=== PATIENT | female | born 1965 | race Caucasian/White ===

== ENCOUNTER → 2019-09-18 17:17 | Outpatient (CLI) | payer OTHER, SELFPAY ==
--- NOTE | ~2019-09-18 | MM_ITS ---
EXAMINATION: MM screening [facility] BI w [facility] HISTORY: Screening mammogram TECHNIQUE: Craniocaudal and mediolateral oblique 3-D tomosynthesis images were obtained and synthetic 2-D images were generated. CAD analysis was submitted and interpreted. COMPARISON: 06/30/2017, 06/14/2014, 02/15/2013 BREAST PARENCHYMAL COMPOSITION: The breasts are heterogeneously dense, which may obscure small masses . FINDINGS: Scattered benign-appearing calcifications are present. There is no evidence of suspicious m ass, calcification, or architectural distortion to suggest malignancy in either breast. There has bee n no suspicious interval change. IMPRESSION: 1. No mammographic evidence of malignancy. 2. Recommend routine screening mammography in one year. BI-RADS Category 2: Benign finding(s). Reviewed, dictated and finalized at location A. TECH
== END ==
PROVIDERS: PCP Family Medicine; Visit Provider Family Medicine
DX: Z12.31 Encounter for screening mammogram for malignant neoplasm of breast (principal)
CPT/HCPCS: 77063; 77067

== ENCOUNTER 2020-04-03 08:36 | Outpatient (CLI) | payer OTHER, SELFPAY ==
--- NOTE | ~2020-04-03 | MMUS_ITS ---
EXAMINATION: MM diagnostic [facility] BI w [facility], US breast RT limited HISTORY: Palpable right breast abnormality TECHNIQUE: Additional 3-D tomosynthesis images of the breasts were performed and synthetic 2-D images were generated. CAD analysis was submitted and interpreted. High resolution right breast ultrasound was performed. COMPARISON: Comparison to multiple prior studies sequentially, with oldest reviewed study dated 11/18. BREAST PARENCHYMAL COMPOSITION: The breasts are heterogenously dense, which may obscure small masses. FINDINGS: MAMMOGRAPHIC FINDINGS: There are no new masses, calcifications or architectural distortion in the breast to suggest malignan cy. Specifically, no abnormality in the area of palpable concern in the lower inner quadrant of the r ight breast. ULTRASOUND: Right breast ultrasound: In the area of palpable concern at 4:00, 9 cm from the nipple, there is a benign-appearing oval hyper echoic mass with parallel orientations and internal striations, compatible with 1.2 cm lipoma located superficially. No suspicious masses to suggest malignancy. IMPRESSION: 1. No evidence for malignancy in either breast. Benign findings. 2. Routine yearly screening mammogram and regular clinical breast examination are recommended. BI-RADS Category 2: Benign finding(s). Reviewed, dictated and finalized at location A. IMPRESSION: 1. No evidence for malignancy in either breast. Benign findings. 2. Routine yearly screening mammogram and regular clinical breast examination a re recommended. BI-RADS Category 2: Benign finding(s).
== END 2020-04-03 08:37 ==
PROVIDERS: PCP Family Medicine; Visit Provider Nurse Practitioner Family
DX: R92.8 Other abnormal and inconclusive findings on diagnostic imaging of breast (principal)
CPT/HCPCS: 76642; 77062; 77066; G0279

== ENCOUNTER 2020-06-03 01:17 | Outpatient (CLI) | payer OTHER, SELFPAY ==
[2020-06-03 22:35] LABS: SARS-CoV-2 RNA PCR Negative
== END 2020-06-03 01:18 | disposition home or self-care (01) ==
LOC: ANHCOVIDDT 01:19
PROVIDERS: PCP Family Medicine; Visit Provider Internal Medicine Gastroenterology
DX: Z01.812 Encounter for preprocedural laboratory examination (principal); Z20.828 Contact with and (suspected) exposure to other viral communicable diseases
CPT/HCPCS: 87635; C9803; U0003

== ENCOUNTER 2020-06-05 02:30 | Day surgery (SDC) | payer OTHER, SELFPAY ==
[2020-05-29 14:25] VITALS: BMI 30.2
[2020-06-05 13:06] VITALS: BP 132/53; PULSE 99; RESP 16; TEMP 36.5; O2SAT 99; BMI 29.5
--- NOTE | 2020-06-05 13:10 | WPDANESEPPF ---
Anes - Initial Pre Proc Eval Procedure: Operation Date: 06/05/20 14:00 Proposed Procedures p Screening Colonoscopy - Sedrick Hernandez MD Date/Time: 06/05/20 13:10 Surgeon: Sedrick Hernandez MD Pre Op Diagnosis: Neoplasm Screening Patient Data Age: 54 Gender: F Height: 5 ft 2 in Weight: 73.4 kg Last Vital Signs Temp 36.5 C 06/05/20 13:06 Pulse 99 06/05/20 13:06 Resp 16 06/05/20 13:06 BP 132/53 L 06/05/20 13:06 Pulse Ox 99 06/05/20 13:06 Allergies Allergy/AdvReac Type Severity Reaction Status Date / Time No Known Allergies Allergy Verified 06/05/20 13:04 Home Medications Medication Instructions Recorded Confirmed Type levalbuterol HCl 0.63 mg/3 mL 0.63 mg INHALATION Q6H PRN 06/05/19 05/29/20 History solution for nebulization cyclobenzaprine 10 mg tablet 10 mg PO BID #60 tablet 08/02/19 05/29/20 Rx mometasone-formoterol HFA 200 2 puff INHALATION Q12H #13 gm 10/27/19 05/29/20 Rx mcg-5 mcg/actuation aerosol inhaler pantoprazole 40 mg tablet,delayed 40 mg PO QAM #30 tablet 11/21/19 05/29/20 Rx release montelukast 10 mg tablet 10 mg PO DAILY #30 tablet 11/22/19 05/29/20 Rx phentermine 37.5 mg capsule 37.5 mg PO DAILY #20 cap 02/11/20 05/29/20 Rx cetirizine 10 mg tablet 10 mg PO DAILY #30 tablet 02/15/20 05/29/20 Rx triamcinolone acetonide 0.5 % 1 applic TOPICAL BID #30 gm 02/26/20 05/29/20 Rx topical cream meloxicam 15 mg tablet 15 mg PO DAILY #30 tablet 04/17/20 05/29/20 Rx albuterol sulfate 90 mcg/actuation 4 puff INHALATION Q4H PRN #8 gm 05/15/20 05/29/20 Rx aerosol inhaler peg 3350 240 gram-electrolytes 240 ml PO Q10M #4000 ml 05/15/20 Rx 22.72 gram-6.72 g-5.84 g powdr for soln sodium,potassium,mag sulfates 17.5 480 ml PO .COMPLEX #480 ml 05/29/20 Rx gram-3.13 gram-1.6 gram oral soln Patient hx anesthesia problems: none Family hx anesthesia problems: none [facility] Surgical History Surgical History (Updated 06/05/20 @ 13:14 by Jamari Beckett MD) History of bronchoscopy History of section History of D&C Family History Family History Father Cerebrovascular accident Family history of diabetes mellitus in first degree relative Grandparent Malignant neoplasm of prostate Mother Family history of diabetes mellitus in first degree relative Family history of malignant neoplasm of uterus Family history of coronary artery disease Other Hypertension Social History Social History Smoking status: Former smoker Second hand tobacco smoke exposure: Yes Alcohol intake: current Living arrangements: with family Spiritual care concerns: No Anes - Eval Final PreProcedure Day of Procedure 06/05/20 13:10 Patient weight: obese Heart: regular rate and rhythm Lungs: clear to auscultation Airway: Mallampati scale class II Neurological: alert and oriented Last oral intake: >/= 8 hours ASA classification: III Emergent: no Anesthetic plan: proceed Anesthesia type and monitoring: general GIVS and standard monitoring Informed Consent: The patient's anesthetic plan and its attendant risks and benefits were discussed with the patient/family/POA. Questions were solicited and answers provided to the satisfaction of the patient/family/POA.
[2020-06-05] MEDS: LACTATED RINGERS 1,000 ML 150 ML IV CONT (13:26)
--- NOTE | 2020-06-05 13:28 | PM.HPGS ---
History of Present Illness History of Present Illness Consent: Risks, benefits, and alternatives have been discussed and questions answered. Patient agrees to proceed with procedure. Chief complaint: Neoplasm Screening Narrative: Melissa Stuart is a 54 year old female here for first screening colonoscopy Review of Systems Constitutional: Constitutional: Denies headache(s) and Denies weakness Eyes: Eyes: Denies blurry vision ENT: Reports Normal hearing present, Denies headache(s) and Denies neck pain Cardiovascular: Cardiovascular: Denies chest pain and Denies dyspnea Respiratory: Respiratory: Denies dyspnea Gastrointestinal: Gastrointestinal: Reports no additional gastrointestinal complaints Genitourinary: Genitourinary: Denies dysuria Musculoskeletal: Musculoskeletal: Denies neck pain Integumentary/Breasts: Skin/Breast: Denies dry skin Neurologic: Reports Normal hearing present, Denies headache(s) and Denies weakness Psychiatric: Psychiatric: Denies anxiety Endocrine: Endocrine: Denies change in body appearance Hematologic/Lymphatic: Hematologic/Lymphatic: Denies easy bleeding Allergic/Immunologic: Allergic/Immunologic: Denies urticaria [facility] Past Medical History Medical History (Updated 06/05/20 @ 13:28 by Sedrick Hernandez MD) Colon cancer screening Surgical History Surgical History (Updated 06/05/20 @ 13:14 by Jamari Beckett MD) History of bronchoscopy History of section History of D&C Family History Family History Father Cerebrovascular accident Family history of diabetes mellitus in first degree relative Grandparent Malignant neoplasm of prostate Mother Family history of diabetes mellitus in first degree relative Family history of malignant neoplasm of uterus Family history of coronary artery disease Other Hypertension Social History Social History Smoking status: Former smoker Second hand tobacco smoke exposure: Yes Alcohol intake: current Living arrangements: with family Spiritual care concerns: No Meds Home Medications and Allergies Home Medications Medication Instructions Recorded Confirmed Type levalbuterol HCl 0.63 mg/3 mL 0.63 mg INHALATION Q6H PRN 06/05/19 05/29/20 History solution for nebulization cyclobenzaprine 10 mg tablet 10 mg PO BID #60 tablet 08/02/19 05/29/20 Rx mometasone-formoterol HFA 200 2 puff INHALATION Q12H #13 gm 10/27/19 05/29/20 Rx mcg-5 mcg/actuation aerosol inhaler pantoprazole 40 mg tablet,delayed 40 mg PO QAM #30 tablet 11/21/19 05/29/20 Rx release montelukast 10 mg tablet 10 mg PO DAILY #30 tablet 11/22/19 05/29/20 Rx phentermine 37.5 mg capsule 37.5 mg PO DAILY #20 cap 02/11/20 05/29/20 Rx cetirizine 10 mg tablet 10 mg PO DAILY #30 tablet 02/15/20 05/29/20 Rx triamcinolone acetonide 0.5 % 1 applic TOPICAL BID #30 gm 02/26/20 05/29/20 Rx topical cream meloxicam 15 mg tablet 15 mg PO DAILY #30 tablet 04/17/20 05/29/20 Rx albuterol sulfate 90 mcg/actuation 4 puff INHALATION Q4H PRN #8 gm 05/15/20 05/29/20 Rx aerosol inhaler peg 3350 240 gram-electrolytes 240 ml PO Q10M #4000 ml 05/15/20 Rx 22.72 gram-6.72 g-5.84 g powdr for soln sodium,potassium,mag sulfates 17.5 480 ml PO .COMPLEX #480 ml 05/29/20 Rx gram-3.13 gram-1.6 gram oral soln Allergies Allergy/AdvReac Type Severity Reaction Status Date / Time No Known Allergies Allergy Verified 06/05/20 13:04 Vital Signs Vital Signs - 24 hr 06/05/20 13:06 Temperature 97.7 F Pulse Rate 99 Respiratory Rate 16 Blood Pressure 132/53 L Pulse Oximetry 99 Exam Const: General: comfortable and no acute distress HENMT: General nose exam: Normal nares present Eyes: General: appearance normal, both eyes and all related structures Neck: Neck: no JVD Resp: Auscultation: clear to auscultation bilaterally C
[2020-06-05 13:52] VITALS: BP 107/53; PULSE 87; RESP 16; O2SAT 99
[2020-06-05 14:02] VITALS: BP 119/52; PULSE 84; RESP 16; O2SAT 99
[2020-06-05 14:12] VITALS: BP 127/64; PULSE 82; RESP 16; O2SAT 99
== END 2020-06-05 14:40 | disposition home or self-care (01) ==
PROVIDERS: PCP Family Medicine; Visit Provider Internal Medicine Gastroenterology
PROC: 0DJD8ZZ Inspection of Lower Intestinal Tract, Via Natural or Artificial Opening Endoscopic (ICD-10-PCS; CPT 45378; principal; 2020-06-05 14:00)
DX: Z12.11 Encounter for screening for malignant neoplasm of colon (principal); K57.30 Diverticulosis of large intestine without perforation or abscess without bleeding
CPT/HCPCS: 45378; J2704; J7120

== ENCOUNTER 2021-11-25 14:46 | Outpatient (CLI) | payer OTHER, SELFPAY ==
[2021-11-25 15:18] LABS: Rheumatoid Factor < 8.6 IU/ML (<12)
[2021-11-25 15:47] LABS: Erythrocyte Sedimentation Rate 1 mm/hr (0-20)
== END 2021-11-25 14:47 | disposition home or self-care (01) ==
LOC: ANHLAB 14:48
PROVIDERS: PCP Family Medicine; Visit Provider Nurse Practitioner Family
DX: M19.90 Unspecified osteoarthritis, unspecified site (principal)
CPT/HCPCS: 36415; 85652; 86038; 86430

== ENCOUNTER 2021-12-21 17:57 | Outpatient (CLI) | payer OTHER, SELFPAY ==
--- NOTE | ~2021-12-21 | XR_ITS ---
EXAM: XR lumbar spine 6V w bending DATE: 12/21/2021 18:30 HISTORY: M54.42 - Lumbago with sciatica, left side . COMPARISON: None available. FINDINGS: 5 nonrib-bearing lumbar-type vertebral bodies. Pedicles intact. Normal vertebral body alig nment. Very little range of motion in flexion. Vertebral body heights preserved. Severe height loss a t L5-S1. Multilevel mild marginal osteophytosis. Mild lower lumbar facet arthropathy. No definite par s defect. No fracture or dislocation. IMPRESSION: No dynamic listhesis in extension. Limited evaluation for listhesis in flexion due to clifford ited range of motion. Severe degenerative disc disease at L5-S1. Reviewed, dictated and finalized at location K. IMPRESSION: No dynamic listhesis in extension. Limited evaluation for listhesis in flexion due to limited range of motion. Severe degenerative disc disease at L5-S1.
--- NOTE | ~2021-12-21 | XR_ITS ---
EXAM: XR elbow RT min 3V DATE: 12/21/2021 18:30 HISTORY: M25.529 - Pain in unspecified elbow . COMPARISON: None available. FINDINGS: Normal mineralization. No fracture or dislocation. No lytic or blastic lesion. Joint space s are maintained. No erosion or periosteal change. Soft tissues within normal limits. IMPRESSION: Normal right elbow radiograph findings. Reviewed, dictated and finalized at location K.
== END 2021-12-21 17:58 | disposition home or self-care (01) ==
PROVIDERS: PCP Family Medicine; Visit Provider Nurse Practitioner Family
DX: M25.529 Pain in unspecified elbow (principal); M54.41 Lumbago with sciatica, right side; M54.42 Lumbago with sciatica, left side
CPT/HCPCS: 72114; 73080

== ENCOUNTER 2021-12-23 15:18 | Outpatient (CLI) | payer OTHER, SELFPAY ==
[2021-12-23 16:12] LABS: Hematocrit 40.7 % (37.0-47.0); Hemoglobin 12.9 g/dL (12.0-15.0); Mean Corpuscular HGB Conc 31.7 g/dl (32-36); Mean Corpuscular Hemoglobin 28.2 pg (26-34); Mean Corpuscular Volume 88.9 fl (80-100); Mean Platelet Volume 9.9 fl (7.4-10.4); Platelet Count Result 268 k/mm3 (150-375); Red Blood Count 4.58 M/mm3 (4.2-5.4); Red Cell Distribution Width 13.3 % (11.5-14.5); White Blood Count 8.1 K/mm3 (4.5-10.0)
[2021-12-23 16:31] LABS: Erythrocyte Sedimentation Rate 15 mm/hr (0-20)
[2021-12-23 17:01] LABS: Alanine Aminotransferase 20 U/L (6-35); Albumin Level 4.6 g/dL (3.5-5.1); Alkaline Phosphatase 104 U/L (38-126); Anion Gap 7 mmol/L (8-16); Aspartate Amino Transferase 25 U/L (14-36); Bilirubin,Total 0.7 mg/dL (0.2-1.3); Blood Urea Nitrogen 23 mg/dL (7-17); Calcium 9.1 mg/dL (8.4-10.2); Carbon Dioxide 25 mmol/L (22-30); Chloride 108 mmol/L (98-107); Cholesterol 247 mg/dL (0-200); Estimated Glomerular Filt Rate > 60; Glucose 90 mg/dL (65-110); HDL Direct 42 mg/dL; Potassium 4.5 mmol/L (3.4-5.0); Sodium 140 mmol/L (137-145); Triglycerides 212 mg/dL (<150)
[2021-12-23 17:07] LABS: CRP 1.3 mg/dL (<1.0)
[2021-12-23 17:12] LABS: LDL Cholesterol Direct 152 mg/dL
[2021-12-23 17:35] LABS: Iron 75 ug/dL (37-170)
[2021-12-23 17:44] LABS: Percent Iron Saturation 24 % (20-50)
[2021-12-27 21:44] LABS: Tissue Transglutaminase IgG Ab <1.0 U/mL (<15.0)
[2021-12-28 10:50] LABS: Tissue Transglutaminase IgA Ab <1.0 U/mL (<15.0)
== END 2021-12-23 15:19 | disposition home or self-care (01) ==
PROVIDERS: PCP Family Medicine; Referring Provider Internal Medicine Gastroenterology; Visit Provider Nurse Practitioner Family
DX: K57.92 Diverticulitis of intestine, part unspecified, without perforation or abscess without bleeding (principal); K52.9 Noninfective gastroenteritis and colitis, unspecified; D64.9 Anemia, unspecified; Z13.29 Encounter for screening for other suspected endocrine disorder; E78.2 Mixed hyperlipidemia
CPT/HCPCS: 36415; 80053; 80061; 83516; 83540; 83550; 84443; 85027; 85652; 86140

== ENCOUNTER 2022-02-07 12:51 | Outpatient (CLI) | payer OTHER, SELFPAY ==
--- NOTE | ~2022-02-07 | MR_ITS ---
EXAMINATION: MR lumbar spine wo con DATE: 02/07/2022 13:23 INDICATION: Severe degenerative disc disease with back and leg pain TECHNIQUE: Magnetic resonance imaging (MRI) of the lumbar spine was performed without intravenous con trast. Sequences included sagittal T2-weighted FSE, sagittal T2-weighted FS FSE, sagittal T1-weighted FSE, and axial T2-weighted FSE. COMPARISON: Lumbar spine radiographs dated 12/17/2021 FINDINGS: Alignment is normal. Vertebral body heights are normal. Normal marrow signal. Moderate to severe dis c height loss with annular fissure at at L5-S1. Mild disc desiccation with annular fissure at L4-L5. Minimal disc height loss at L2-L3 and L3-L4 and with annular fissure at L1-L2. The conus medullaris t erminates at L2. There is normal signal in the caudal spinal cord. Paravertebral soft tissues are unr emarkable. The following disc levels are specifically discussed: T12-L1: The disc does not extend beyond the endplate margin. There is moderate bilateral facet joint osteoarthritis. There is no neural foraminal stenosis. There is no central canal stenosis. L1-L2: Disc is mildly bulging with superimposed annular fissure and right paracentral disc protrusion . There is mild to moderate bilateral facet joint osteoarthritis. There is mild right neural foramina l stenosis. There is mild central canal stenosis. L2-L3: Disc is mildly bulging. There is mild right and mild to moderate left facet joint osteoarthrit is. There is mild right and mild to moderate left neural foraminal stenosis. There is minimal central canal stenosis. L3-L4: Bilateral small foraminal disc protrusions. There is mild right and moderate left facet joint osteoarthritis. There is mild bilateral neural foraminal stenosis. There is no central canal stenosis . L4-L5: Disc is mildly bulging with superimposed left foraminal zone annular fissure and small disc pr otrusion. There is mild hypertrophy of the ligamentum flavum. There is mild bilateral facet joint ost eoarthritis. There is mild to moderate bilateral neural foraminal stenosis. There is mild central can al stenosis including narrowing of the left and right lateral recesses.. L5-S1: Disc extrusion extending from foraminal zone to foraminal zone with disc material extending up to 4 mm caudal to the level of the superior endplate of S1. There is mild to moderate bilateral face t joint osteoarthritis. There is moderate to stenosis at the entrance and moderate to severe stenosis at the exit of the bilateral neural foramina due in part to prominent L5 posterolateral inferior end plate osteophytes. Mild to moderate stenosis at the left and right lateral recesses with no central c anal stenosis. IMPRESSION: 1. Moderate to severe spondylosis at the lumbosacral junction with mild spondylosis in the more cepha lad lumbar spine. Reviewed, dictated and finalized at location B. IMPRESSION: 1. Moderate to severe spondylosis at the lumbosacral junction with mild spondyl osis in the more cephalad lumbar spine.
== END 2022-02-07 12:52 | disposition home or self-care (01) ==
PROVIDERS: PCP Family Medicine; Visit Provider Nurse Practitioner Family
DX: M51.36 Other intervertebral disc degeneration, lumbar region (principal); M47.896 Other spondylosis, lumbar region
CPT/HCPCS: 72148

== ENCOUNTER 2022-02-22 07:51 | Outpatient (CLI) | payer OTHER, SELFPAY ==
--- NOTE | 2022-03-16 14:52 | WPDHOMESLEEP ---
Sleep Study - Home Unattended Date of Study: 02/22/22 Ordering Provider: Wyatt Gallagher MD Interpreting Provider: Rebekah Barber MD Home Sleep Study Type: Apnea Link Air Height: 1.57 m Weight: 76.204 kg Body Mass Index: 30.7 Neck Circumference (inches): 15 [place]: 16 Reason for Sleep Study Hypersomnolence Sleep History Melissa Stuart is a 56 year old female with difficulty falling asleep and difficulty staying asleep.? She is extremely tired in the day.? She wakes up throughout the night.? There is a family history with her father having loud snoring and probable sleep apnea.? Her younger sister has sleep apnea and she thinks both of her parents did.? She frequently awakens from sleep feeling short of breath and frequently awakens at night with heartburn, belching or coughing.? She occasionally snores loudly enough that others complain about it.? She constantly has trouble sleeping with a cold.? She frequently wakes up gasping for breath at night and frequently has breathing problems at night observed by others.? She frequently feels as if she is choking at night.? She constantly sweats excessively night.? She frequently notices her heart pounding or beating irregularly at night.? She frequently falls asleep during the day, occasionally falls asleep involuntarily but never falls asleep while driving.? She occasionally has a month full tone with strong emotion.? She frequently has daytime difficulties due to excessive sleepiness.? She occasionally feels paralyzed on waking or falling asleep.? She frequently has vivid dreamlike scenes upon awakening or falling asleep.? She occasionally feels afraid to go to sleep.? She frequently has nightmares.? She frequently remembers her dreams.? She frequently has racing thoughts.? She constantly feels sad, depressed and anxious.? She constantly has muscular tension.? She frequently notices parts of her body jerking.? She constantly kicks at night. She occasionally has crawling and aching feelings in her legs, and constantly has leg pain at night.? She occasionally has morning jaw pain. ??She constantly grinds her teeth at night.? She frequently is bothered by pain during the day, is awakened by pain at night and wakes up feeling stiff in the morning with sore achy muscles and pain in the neck and spine.? She has fatigue, panic, sexual problems, memory problems, concentration difficulties, nightmares, headaches and bowel disturbances.? Normal bedtime is variable, and she estimates getting 3-4 hours of sleep at night.? Sometimes it takes hours to fall asleep.? She wakes up numerous times at night and may stay awake anywhere from 30 minutes to several hours.? She sleeps longer on the weekends.? She has always felt that she has needed naps, even as far back as childhood. ?She takes naps in the afternoon or evening.? A short nap is not at all refreshing.? She is drowsy in the morning for 3 hours or longer.? She feels better in the afternoon compared to other times of the day. Habits:? Quit tobacco 3 years ago.? Caffeine 2 sodas or teas daily.? No alcohol for the last 8 years.? No recreational drugs.? [facility] Past Medical History Medical History BMI 29.0-29.9,adult BMI 30.0-30.9,adult BMI greater than 30 Chronic diarrhea Colon cancer screening Diverticula of colon IBS (irritable bowel syndrome) Irritable bowel syndrome with diarrhea Lower abdominal pain Surgical History Surgical History History of bronchoscopy History of section History of D&C Family History Family History Father Cerebrovascular accident Family history of diabetes mellitus in first degree relative Grandparent Malignant neoplasm of prostate Mother Family history of diabetes mellitus in first degree relative Family history of malignant neoplasm of uterus Family his
[2022-03-16 15:02] VITALS: BMI 30.7
== END 2022-02-23 12:15 | disposition home or self-care (01) ==
PROVIDERS: PCP Family Medicine; Visit Provider Family Medicine
DX: G47.33 Obstructive sleep apnea (adult) (pediatric) (principal); G47.10 Hypersomnia, unspecified; G25.81 Restless legs syndrome
CPT/HCPCS: 95806

== ENCOUNTER 2022-03-07 00:20 | Day surgery (SDC) | payer OTHER, SELFPAY ==
[2022-03-07 11:35] VITALS: BP 140/69; PULSE 100; RESP 18; TEMP 36.4; O2SAT 99
[2022-03-07] MEDS: LACTATED RINGERS 1,000 ML 150 ML IV CONT (11:36)
--- NOTE | 2022-03-07 11:56 | PM.HPGS ---
History of Present Illness History of Present Illness Consent: Risks, benefits, and alternatives have been discussed and questions answered. Patient agrees to proceed with procedure. Chief complaint: GERD, diarrhea Narrative: Melissa Stuart is a 56 year old female with gerd on pantoprazole helping but still breakthrough, also diarrhea. She used imodium and recently questran with minimal relief. ?Had for screening 2019, no polyps, no colitis but had diverticulosis. Serology for celiac negative. Review of Systems Constitutional: Constitutional: Denies headache(s) and Denies weakness Eyes: Eyes: Denies blurry vision ENT: Reports Normal hearing present, Denies headache(s) and Denies neck pain Cardiovascular: Cardiovascular: Denies chest pain and Denies dyspnea Respiratory: Respiratory: Denies dyspnea Gastrointestinal: Gastrointestinal: Reports no additional gastrointestinal complaints Genitourinary: Genitourinary: Denies dysuria Musculoskeletal: Musculoskeletal: Denies neck pain Integumentary/Breasts: Skin/Breast: Denies dry skin Neurologic: Reports Normal hearing present, Denies headache(s) and Denies weakness Psychiatric: Psychiatric: Denies anxiety Endocrine: Endocrine: Denies change in body appearance Hematologic/Lymphatic: Hematologic/Lymphatic: Denies easy bleeding Allergic/Immunologic: Allergic/Immunologic: Denies urticaria PMFSH Past Medical History Medical History BMI 29.0-29.9,adult BMI 30.0-30.9,adult BMI greater than 30 Chronic diarrhea Colon cancer screening Diverticula of colon IBS (irritable bowel syndrome) Irritable bowel syndrome with diarrhea Lower abdominal pain Surgical History Surgical History History of bronchoscopy History of section History of D&C Family History Family History Father Cerebrovascular accident Family history of diabetes mellitus in first degree relative Grandparent Malignant neoplasm of prostate Mother Family history of diabetes mellitus in first degree relative Family history of malignant neoplasm of uterus Family history of coronary artery disease Other Hypertension Social History Social History Smoking packs per day: 1 Smoking cigarettes per day: 20.0 Years smoked: 40 Smoking pack-years: 40.00 Smoking status: Former smoker Tobacco type: cigarettes Second hand tobacco smoke exposure: Yes Alcohol intake: former Living arrangements: with family Spiritual care concerns: No Meds Home Medications and Allergies Home Medications Medication Instructions Recorded Confirmed Type levalbuterol HCl 0.63 mg/3 mL 0.63 mg inhalation Q6H PRN asthma 06/05/19 02/22/22 History solution for nebulization mometasone-formoterol HFA 200 2 puff inhalation Q12H #13 grams 10/27/19 02/22/22 Rx mcg-5 mcg/actuation aerosol inhaler (Dulera) albuterol sulfate 90 mcg/actuation 4 puff inhalation Q4H PRN 06/12/20 02/22/22 Rx aerosol inhaler (Proventil HFA) shortness of breath or wheezing #18 grams cetirizine 10 mg tablet 10 mg PO DAILY #90 tabs 06/12/20 02/22/22 Rx pantoprazole 40 mg tablet,delayed 40 mg PO QAM #90 tabs 01/28/21 02/22/22 Rx release (Protonix) loperamide 2 mg tablet 2 mg PO Q6H PRN loose stool #20 11/10/21 02/22/22 Rx tabs cholestyramine (with sugar) 4 gram 4 g PO DAILY #348.6 grams 12/23/21 02/22/22 Rx oral powder ondansetron HCl 4 mg tablet 4 mg PO Q8H PRN nausea and 12/23/21 02/22/22 Rx vomiting #90 tabs duloxetine 30 mg capsule,delayed 30 mg PO DAILY #30 caps 02/05/22 02/22/22 Rx release tramadol 50 mg tablet 50 mg PO Q6H PRN pain #60 tabs 02/07/22 02/22/22 Rx hydrocodone 5 mg-acetaminophen 325 1 tablet PO DAILY PRN Pain 02/22/22 02/22/22 History mg tablet
--- NOTE | 2022-03-07 11:56 | WPDANESEPPF ---
Anes - Initial Pre Proc Eval Procedure: Operation Date: 03/07/22 12:45 Proposed Procedures p Flexible Sigmoidoscopy - Sedrick Hernandez MD s Esophagogastroduodenoscopy - Sedrick Hernandez MD Date/Time: 03/07/22 11:56 Surgeon: Sedrick Hernandez MD Pre Op Diagnosis: GERD, diarrhea Patient Data Age: 56 Gender: F Height: 1.57 m Weight: 74.5 kg Last Vital Signs Temp 97.5 F L 03/07/22 11:35 Pulse 100 03/07/22 11:35 Resp 18 03/07/22 11:35 BP 140/69 03/07/22 11:35 Pulse Ox 99 03/07/22 11:35 O2 Del Method Room Air 03/07/22 11:35 Allergies Allergy/AdvReac Type Severity Reaction Status Date / Time mushroom AdvReac Vomiting Verified 03/07/22 11:32 Home Medications Medication Instructions Recorded Confirmed Type levalbuterol HCl 0.63 mg/3 mL 0.63 mg inhalation Q6H PRN asthma 06/05/19 02/22/22 History solution for nebulization mometasone-formoterol HFA 200 2 puff inhalation Q12H #13 grams 10/27/19 02/22/22 Rx mcg-5 mcg/actuation aerosol inhaler (Dulera) albuterol sulfate 90 mcg/actuation 4 puff inhalation Q4H PRN 06/12/20 02/22/22 Rx aerosol inhaler (Proventil HFA) shortness of breath or wheezing #18 grams cetirizine 10 mg tablet 10 mg PO DAILY #90 tabs 06/12/20 02/22/22 Rx pantoprazole 40 mg tablet,delayed 40 mg PO QAM #90 tabs 01/28/21 02/22/22 Rx release (Protonix) loperamide 2 mg tablet 2 mg PO Q6H PRN loose stool #20 11/10/21 02/22/22 Rx tabs cholestyramine (with sugar) 4 gram 4 g PO DAILY #348.6 grams 12/23/21 02/22/22 Rx oral powder ondansetron HCl 4 mg tablet 4 mg PO Q8H PRN nausea and 12/23/21 02/22/22 Rx vomiting #90 tabs duloxetine 30 mg capsule,delayed 30 mg PO DAILY #30 caps 02/05/22 02/22/22 Rx release tramadol 50 mg tablet 50 mg PO Q6H PRN pain #60 tabs 02/07/22 02/22/22 Rx hydrocodone 5 mg-acetaminophen 325 1 tablet PO DAILY PRN Pain 02/22/22 02/22/22 History mg tablet montelukast 10 mg tablet 10 mg PO DAILY 02/22/22 02/22/22 History gabapentin 300 mg capsule 300 mg PO QHS #30 caps 02/25/22 03/07/22 Rx Patient hx anesthesia problems: none Family hx anesthesia problems: none Results Review: All pre-operative results and documents have been reviewed as part of the pre-operative evaluation. [facility] Past Medical History Medical History BMI 29.0-29.9,adult BMI 30.0-30.9,adult BMI greater than 30 Chronic diarrhea Colon cancer screening Diverticula of colon IBS (irritable bowel syndrome) Irritable bowel syndrome with diarrhea Lower abdominal pain Surgical History Surgical History History of bronchoscopy History of section History of D&C Family History Family History Father Cerebrovascular accident Family history of diabetes mellitus in first degree relative Grandparent Malignant neoplasm of prostate Mother Family history of diabetes mellitus in first degree relative Family history of malignant neoplasm of uterus Family history of coronary artery disease Other Hypertension Social History Social History Smoking packs per day: 1 Smoking cigarettes per day: 20.0 Years smoked: 40 Smoking pack-years: 40.00 Smoking status: Former smoker Tobacco type: cigarettes Second hand tobacco smoke exposure: Yes Alcohol intake: former Living arrangements: with family Spiritual care concerns: No Anes - Eval Final PreProcedure Day of Procedure 03/07/22 11:56 Patient weight: overweight Heart: regular rate and rhythm Lungs: clear to auscultation Airway: Mallampati scale class II Neurological: alert and oriented Last oral intake: >/= 8 hours ASA classification: II Emergent: no Anesthetic plan: proceed Anesthesia type and monitoring: general
[2022-03-07 12:18] VITALS: BP 120/63; PULSE 97; RESP 16; O2SAT 97
[2022-03-07 12:28] VITALS: BP 130/78; PULSE 94; RESP 22; O2SAT 97
== END 2022-03-07 12:44 | disposition home or self-care (01) ==
PROVIDERS: PCP Family Medicine; Visit Provider Internal Medicine Gastroenterology
PROC: 0DJD8ZZ Inspection of Lower Intestinal Tract, Via Natural or Artificial Opening Endoscopic (ICD-10-PCS; CPT 45330; principal; 2022-03-07 12:45)
DX: K58.0 Irritable bowel syndrome with diarrhea (principal); D12.4 Benign neoplasm of descending colon; K21.9 Gastro-esophageal reflux disease without esophagitis; Z87.19 Personal history of other diseases of the digestive system; Z79.51 Long term (current) use of inhaled steroids; Z87.891 Personal history of nicotine dependence
CPT/HCPCS: 45338; 45331; 43239; 88305; J2001; J2704; J7120

== ENCOUNTER 2022-03-16 12:15 | Outpatient (CLI) | payer OTHER, SELFPAY ==
--- NOTE | ~2022-03-16 | MM_ITS ---
EXAMINATION: MM screening ruthy BI w yvrose HISTORY: Screening mammogram TECHNIQUE: Craniocaudal and mediolateral oblique 3-D tomosynthesis images were obtained and synthetic 2-D images were generated. CAD analysis was submitted and interpreted. COMPARISON: 03/2020 diagnostic bilateral mammogram and limited right breast ultrasound To, 06/30/2017 bilateral screening mammogram examinations BREAST PARENCHYMAL COMPOSITION: The breasts are heterogeneously dense, which may obscure small masses . FINDINGS: Stable mild fibroglandular asymmetry since 06/30/2017. Occasional bilateral benign calcifica tions. There is no evidence of suspicious mass, calcification, or architectural distortion to suggest malignancy in either breast. There has been no suspicious interval change. IMPRESSION: 1. No mammographic evidence of malignancy. 2. Recommend routine screening mammography in one year. BI-RADS Category 2: Benign finding(s). Reviewed, dictated and finalized at location A.
== END 2022-03-16 12:16 | disposition home or self-care (01) ==
PROVIDERS: PCP Family Medicine; Visit Provider Nurse Practitioner Family
DX: Z12.31 Encounter for screening mammogram for malignant neoplasm of breast (principal)
CPT/HCPCS: 77063; 77067

== ENCOUNTER 2023-03-06 13:44 | Outpatient (CLI) | payer OTHER, SELFPAY ==
--- NOTE | ~2023-03-06 | XR_ITS ---
EXAM: [id number] DATE: 03/06/2023 14:00 HISTORY: R20.0 - Anesthesia of skin/ NEUROPATHY OF HANDS . COMPARISON: None available. FINDINGS: Craniocervical association and atlantoaxial joint are aligned. No prevertebral soft tissue swelling. Vertebral bodies are aligned. Vertebral body heights are maintained. Normal disc spaces. M ultilevel mild disc space narrowing. Multilevel facet sclerosis and hypertrophy, most pronounced at C 4-5. IMPRESSION: Mild multilevel degenerative disc disease. Moderate multilevel facet arthropathy. Reviewed, dictated and finalized at location K.
[2023-03-06 14:15] LABS: Basophils Absolute Auto 0.1 K/mm3 (0.0-0.1); Basophils Percent Auto 0.8 % (0.2-1.2); Eosinophils Absolute Auto 0.2 K/mm3 (0-0.3); Eosinophils Percent Auto 2.9 % (0-4.4); Hematocrit 40.2 % (37.0-47.0); Hemoglobin 12.9 g/dL (12.0-15.0); Immature Granulocyte Absolute 0.06 K/mm3 (0.00-0.031); Immature Granulocyte Percent A 0.8 % (0-0.5); Lymphocytes Absolute Auto 1.59 K/mm3 (0.9-3.2); Lymphocytes Percent Auto 20.9 % (18.3-44.2); Mean Corpuscular HGB Conc 32.1 g/dl (32-36); Mean Corpuscular Hemoglobin 28.2 pg (26-34); Mean Platelet Volume 9.4 fl (7.4-10.4); Monocytes Absolute Auto 0.6 K/mm3 (0.1-0.6); Monocytes Percent Auto 7.4 % (2.6-8.5); Neutrophils Absolute Auto 5.1 K/mm3 (1.3-6.7); Neutrophils Percent Auto 67.2 % (45.5-73.1); Platelet Count Result 255 k/mm3 (150-375); Red Blood Count 4.57 M/mm3 (4.2-5.4); Red Cell Distribution Width 12.8 % (11.5-14.5); White Blood Count 7.6 K/mm3 (4.5-10.0)
[2023-03-06 14:34] LABS: Alanine Aminotransferase 28 U/L (6-35); Albumin Level 4.1 g/dL (3.5-5.1); Alkaline Phosphatase 78 U/L (38-126); Anion Gap 5 mmol/L (8-16); Aspartate Amino Transferase 27 U/L (14-36); Bilirubin,Total 0.6 mg/dL (0.2-1.3); Blood Urea Nitrogen 24 mg/dL (7-17); Calcium 8.9 mg/dL (8.4-10.2); Carbon Dioxide 25 mmol/L (22-30); Chloride 104 mmol/L (98-107); Cholesterol 226 mg/dL (0-200); Estimated Glomerular Filt Rate > 60; Glucose 98 mg/dL (65-110); HDL Direct 45 mg/dL; Potassium 4.7 mmol/L (3.4-5.0); Sodium 134 mmol/L (137-145); Triglycerides 170 mg/dL (<150)
[2023-03-06 14:45] LABS: LDL Cholesterol Direct 140 mg/dL
== END 2023-03-06 13:45 | disposition home or self-care (01) ==
LOC: ANHIMG 13:46
PROVIDERS: PCP Family Medicine; Visit Provider Physician Assistant Medical
DX: R20.0 Anesthesia of skin (principal); R20.2 Paresthesia of skin; R42 Dizziness and giddiness; E78.5 Hyperlipidemia, unspecified; M50.30 Other cervical disc degeneration, unspecified cervical region
CPT/HCPCS: 36415; 72040; 80053; 80061; 84443; 85025

== ENCOUNTER 2023-04-18 08:57 | Outpatient (CLI) | payer OTHER, SELFPAY ==
--- NOTE | 2023-04-18 11:30 | NEURO_ITS ---
Impression: # 57 year old non-diabetic complains of numbness of hands. # Bilateral ulnar neuropathy across the elbows. # Mild bilateral Carpal Tunnel Syndrome, sensory more then motor. # Needle/EMG exam mildly abnormal. Nerve Conduction Studies Anti Sensory Summary Table Stim Site NR Peak (ms) P-T Amp (?V) Site1 Site2 Delta-P (ms) Dist (cm) Nestor (m/s) Left Median Anti Sensory (2-3nd Digit) Wrist 4.6 23.5 Wrist 2-3nd Digit 4.6 14.0 30 Wrist 5.3 10.3 Wrist 2-3nd Digit 4.6 14.0 30 Right Median Anti Sensory (2-3nd Digit) Wrist 4.9 30.7 Wrist 2-3nd Digit 4.9 14.0 29 Wrist 5.0 15.0 Wrist 2-3nd Digit 4.9 14.0 29 Left Radial Anti Sensory (Base 1st Digit) Wrist 2.7 13.2 Wrist Base 1st Digit 2.7 0.0 Right Radial Anti Sensory (Base 1st Digit) Wrist 1.8 12.0 Wrist Base 1st Digit 1.8 0.0 Left Ulnar Anti Sensory (5th Digit) Wrist 2.5 29.9 Wrist 5th Digit 2.5 14.0 56 Right Ulnar Anti Sensory (5th Digit) Wrist 2.5 41.4 Wrist 5th Digit 2.5 14.0 56 Motor Summary Table Stim Site NR Onset (ms) O-P Amp (mV) Site1 Site2 Delta-0 (ms) Dist (cm) Nestor (m/s) Left Median Motor (Abd Poll Brev) Wrist 3.8 3.9 Elbow Wrist 5.1 27.0 53 Elbow 8.9 3.5 Right Median Motor (Abd Poll Brev) Wrist 3.4 5.4 Elbow Wrist 4.9 26.0 53 Elbow 8.3 3.4 Left Ulnar Motor (Abd Dig Minimi) Wrist 2.5 5.3 A Elbow Wrist 5.5 27.0 49 A Elbow 8.0 4.2 B Elbow Wrist 3.8 21.0 55 B Elbow 6.3 3.3 Right Ulnar Motor (Abd Dig Minimi) Wrist 2.6 6.7 A Elbow Wrist 5.9 28.0 47 A Elbow 8.5 6.3 B Elbow Wrist 4.4 20.0 45 B Elbow 7.0 6.0 F Wave Studies NR F-Lat (ms) L-R F-Lat (ms) Left Median (Mrkrs) (Abd Poll Brev) 28.36 0.76 Right Median (Mrkrs) (Abd Poll Brev) 29.12 0.76 Left Ulnar (Mrkrs) (Abd Dig Min) 27.73 0.43 Right Ulnar (Mrkrs) (Abd Dig Min) 28.17 0.43 EMG Side Muscle Nerve Root Ins Act Fibs Amp Dur Recrt Comment Right 1stDorInt Ulnar C8-T1 Nml Nml Nml Nml Nml Right Ext Indicis Radial (Post Int) C7-8 Nml Nml Nml Nml Nml Right Ext Digitorum Radial (Post Int) C7-8 Nml Nml Nml Nml Nml Right BrachioRad Radial C5-6 Nml Nml Nml Nml Nml Right PronatorTeres Median C6-7 Nml Nml Nml Nml Nml Right Abd Poll Brev Median C8-T1 Nml Nml Nml Nml Nml Left 1stDorInt Ulnar C8-T1 Nml Nml Nml Nml Nml Left Ext Indicis Radial (Post Int) C7-8 Nml Nml Nml Nml Nml Left Ext Digitorum Radial (Post Int) C7-8 Nml Nml Nml Nml Nml Left BrachioRad Radial C5-6 Nml Nml Nml Nml Nml Left PronatorTeres Median C6-7 Nml Nml Nml Nml Nml Left Abd Poll Brev Median C8-T1 Nml Nml Nml Nml Nml Right ABD Dig Min Ulnar C8-T1 Nml Nml Nml Nml Nml Left ABD Dig Min Ulnar C8-T1 Nml Nml Nml Nml Nml MTDD
== END 2023-04-18 08:58 | disposition home or self-care (01) ==
LOC: ANHNEURO 09:00
PROVIDERS: PCP Family Medicine; Visit Provider Physician Assistant Medical
DX: R20.0 Anesthesia of skin (principal); G56.23 Lesion of ulnar nerve, bilateral upper limbs; G56.03 Carpal tunnel syndrome, bilateral upper limbs
CPT/HCPCS: 95886; 95911

== ENCOUNTER 2023-05-12 11:47 | Outpatient (CLI) | payer OTHER, SELFPAY ==
--- NOTE | ~2023-05-12 | MMUS_ITS ---
EXAMINATION: MM diagnostic ruthy BI w yvrose, US breast RT complete HISTORY: Left breast lump TECHNIQUE: Additional 3-D tomosynthesis images of were performed and synthetic 2-D images were genera jasmin. CAD analysis was submitted and interpreted. High resolution breast ultrasound was performed. COMPARISON: 03/16/2022 bilateral screening mammogram 04/03/2020 diagnostic bilateral mammogram and right limited breast ultrasound 09/18/2019 bilateral screening mammogram BREAST PARENCHYMAL COMPOSITION: The breasts are heterogeneously dense, which may obscure small masses . FINDINGS: MAMMOGRAPHIC FINDINGS: Occasional scattered bilateral benign calcifications. No suspicious mass, architectural distortion, malignant calcification, skin thickening or retraction or significant new or developing density of either breast is detected. ULTRASOUND: No suspicious mass or shadowing is detected IMPRESSION: 1. Benign findings; no mammographic or sonographic evidence of malignancy 2. Routine annual mammographic screening is recommended. BI-RADS Category 2: Benign finding(s). Reviewed, dictated and finalized at location A. IMPRESSION: 1. Benign findings; no mammographic or sonographic evidence of malignancy 2. Routine annual mammographic screening is recommended. BI-RADS Category 2: Benign finding(s).
== END 2023-05-12 11:48 | disposition home or self-care (01) ==
LOC: ANHIMG 11:53
PROVIDERS: PCP Family Medicine; Visit Provider Family Medicine
DX: N63.0 Unspecified lump in unspecified breast (principal)
CPT/HCPCS: 76641; 77062; 77066; G0279

== ENCOUNTER 2024-06-10 12:23 | Outpatient (CLI) | payer MEDICARE, SELFPAY ==
--- NOTE | ~2024-06-10 | MMUS_ITS ---
EXAMINATION: MM diagnostic ruthy BI w yvrose, US breast RT limited HISTORY: Right breast lump TECHNIQUE: 3-D tomosynthesis images of the breasts were performed and synthetic 2-D images were gener ated. CAD analysis was submitted and interpreted. High resolution limited right breast ultrasound was performed. COMPARISON: 05/12/2023, 03/16/2022, 90 11/18/2019 BREAST PARENCHYMAL COMPOSITION: There are scattered areas of fibroglandular density. FINDINGS: MAMMOGRAPHIC FINDINGS: Parenchymal pattern of the breasts is unchanged. No suspicious mass lesion or distortion. No suspicio us microcalcification. ULTRASOUND: Sonographic imaging performed at the 1:00 position right breast at the area of concern demonstrates a subtle 8 x 6 x 7 mm hyperechoic possible mass. IMPRESSION: Subcentimeter hyperechoic lesion at the 1:00 position right breast at the area of concern. This is m ost compatible with a benign finding. No evidence for malignancy. BI-RADS Category 2: Benign finding(s). Reviewed, dictated and finalized at location M. [employer] IMPRESSION: Subcentimeter hyperechoic lesion at the 1:00 position right breast at the area of concern. This is most compatible with a benign finding. No evidence for malignancy. BI-RADS Category 2: Benign finding(s).
== END 2024-06-10 12:24 | disposition home or self-care (01) ==
LOC: ANHIMG 12:27
PROVIDERS: PCP Family Medicine; Visit Provider Nurse Practitioner Family
DX: R92.8 Other abnormal and inconclusive findings on diagnostic imaging of breast (principal)
CPT/HCPCS: 76642; 77062; 77066; G0279